=== PATIENT | male | born 1950 | race Caucasian/White ===

== ENCOUNTER 2021-04-09 04:14 | Emergency (ER) | payer OTHER ==
[2021-04-09 04:32] VITALS: BP 154/83; PULSE 76; TEMP 98.3; BMI 31.2
[2021-04-09] MEDS ORDERED: LIDOCAINE 5% TOPICAL PATCH TP ONE (04:51)
[2021-04-09] MEDS ORDERED: LIDOCAINE 5% TOPICAL PATCH ONE (05:08)
[2021-04-09] MEDS ORDERED: LIDOCAINE PATCH REMOVAL MC SCH (22:00)
== END 2021-04-09 06:48 | disposition home or self-care (01) ==
LOC: JER 04:14
DX: I10 Essential (primary) hypertension (principal)
CPT/HCPCS: 99283-25